=== PATIENT | male | born 1990 | race Caucasian/White ===

== ENCOUNTER 2017-09-13 08:40 | Outpatient (RCR) | payer MEDICAID | END 2017-12-12 | LOC: PT 08:40 | PROVIDERS: ATTEND Nurse Practitioner Family | DX: G82.20 Paraplegia, unspecified (principal); M54.5 Low back pain; M62.838 Other muscle spasm; N31.9 Neuromuscular dysfunction of bladder, unspecified; Z99.3 Dependence on wheelchair; M54.6 Pain in thoracic spine; M54.2 Cervicalgia | CPT/HCPCS: 97163 ==

== ENCOUNTER 2018-12-12 16:56 | Emergency (ER) | payer MEDICAID ==
[~2018-12-12 16:56] MED LIST: BACL-51 PO; OXYB5TAB86 PO
[2018-12-12 17:04] VITALS: BP 118/76
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
--- NOTE | 2018-12-12 19:25 | RADIOLOGY IMAGING REPORT ---
FACILITY: [facility] [place] PATIENT NAME: Chavez Laboy : 1990 MR: [id number] V: [id number] EXAM DATE: ORDERING PHYSICIAN: ALEJANDRINA RIOS TECHNOLOGIST: Location: [facility] Patient: Chavez Laboy : 1990 Visit/Account:[id number] Date of Sevice: 12/12/2018 EXAMINATION: Thoracic spine, 2 views Lumbar spine, 3 views 12/12/2018 5:58 PM HISTORY: back pain hx of paraplegia/hardware COMPARISON: None available FINDINGS: Patient is status post cage vertebral body replacement at T11 and there is posterior pedic le screw and lenore fusion from T8 through L2. Metallic fixation is intact. Mild wedging of the superior endplate of T8 is of uncertain chronicity. Dextroscoliotic thoracic and levoscoliotic thoracolumbar curvature is present. Paraspinous soft tissue contours are unremarkable. IMPRESSION: 1. Previous T8-L2 fusion with a vertebral body cage at T11. Fusion is intact. 2. Mild superior endplate wedging at T8 of uncertain chronicity, potentially chronic. 3. No acute bony finding in the lumbar spine. Report Dictated By: Juan Jose Jones MD at 12/12/2018 7:19 PM Report E-Signed By: Juan Jose Jones MD at 12/12/2018 7:22 PM WSN:[email or web address]
--- NOTE | 2018-12-12 19:26 | RADIOLOGY IMAGING REPORT ---
FACILITY: [facility] PATIENT NAME: Chavez Laboy : 1990 MR: [id number] V: [id number] EXAM DATE: ORDERING PHYSICIAN: ALEJANDRINA RIOS TECHNOLOGIST: Location: [facility] Patient: Chavez Laboy : 1990 Visit/Account:[id number] Date of Sevice: 12/12/2018 EXAMINATION: Thoracic spine, 2 views Lumbar spine, 3 views 12/12/2018 5:58 PM HISTORY: back pain hx of paraplegia/hardware COMPARISON: None available FINDINGS: Patient is status post cage vertebral body replacement at T11 and there is posterior pedic le screw and lenore fusion from T8 through L2. Metallic fixation is intact. Mild wedging of the superior endplate of T8 is of uncertain chronicity. Dextroscoliotic thoracic and levoscoliotic thoracolumbar curvature is present. Paraspinous soft tissue contours are unremarkable. IMPRESSION: 1. Previous T8-L2 fusion with a vertebral body cage at T11. Fusion is intact. 2. Mild superior endplate wedging at T8 of uncertain chronicity, potentially chronic. 3. No acute bony finding in the lumbar spine. Report Dictated By: Juan Jose Jones MD at 12/12/2018 7:19 PM Report E-Signed By: Juan Jose Jones MD at 12/12/2018 7:22 PM WSN:[id number]
== END 2018-12-12 19:12 | disposition home or self-care (01) ==
LOC: ER 18:06
DX: S39.012A Strain of muscle, fascia and tendon of lower back, initial encounter (principal); M54.6 Pain in thoracic spine; G82.20 Paraplegia, unspecified
CPT/HCPCS: 72070; 72100; 99284

== ENCOUNTER → 2018-12-19 | Outpatient (CLI) | payer MEDICAID ==
--- NOTE | 2018-12-19 12:32 | RADIOLOGY IMAGING REPORT ---
[facility] PATIENT NAME: Chavez Laboy : 1990 MR: [id number] V: [id number] EXAM DATE: ORDERING PHYSICIAN: PHILLIP COLLIER TECHNOLOGIST: Location: [facility] [place] Patient: Chavez Laboy : 1990 Visit/Account:[id number] Date of Sevice: 12/19/2018 Exam type: HIPS BILATERAL History: Left hip pain and low back pain Comparison: None. Findings: An AP view the pelvis and single views of each hip demonstrate mild narrowing along the superior aspe ct of the right hip joint and to a slightly lesser extent along superior aspect of the left hip joint . No underlying fracture dislocation is seen. Incidentally noted are postsurgical changes lumbar sp ine which are incompletely imaged. IMPRESSION: 1. Mild narrowing of the superior aspect of both hip joints, right greater than left which may repre sent mild degenerative arthritis. If pain continues MR may be helpful Report Dictated By: Adelita Blake MD at 12/19/2018 12:26 PM Report E-Signed By: Adelita Blake MD at 12/19/2018 12:28 PM WSN:[email or web address]
== END ==
LOC: RAD 10:40
PROVIDERS: ATTEND Nurse Practitioner Family
DX: M25.552 Pain in left hip (principal); M54.5 Low back pain; M62.3 Immobility syndrome (paraplegic)
CPT/HCPCS: 73522